=== PATIENT | female | born 2000 | race African-American/Black ===

== ENCOUNTER 2023-07-21 07:56 | Emergency (ER) | payer SELFPAY ==
[2023-07-21 09:15] LABS: BARBITURATE SCREEN,URINE NEGATIVE (CUTOFF=200); BENZODIAZEPINES SCREEN,URINE NEGATIVE (CUTOFF=150); BUPRENORPHINE SCREEN,URINE NEGATIVE (CUTOFF=10); METHADONE SCREEN, URINE NEGATIVE (CUTOFF=200); METHAMPHETAMINES SCREEN, URINE NEGATIVE (CUTOFF=500); OXYCODONE SCREEN,URINE NEGATIVE (CUT0FF=100); THC SCREEN,URINE 20 NG/ML NEGATIVE (CUTOFF=50)
[2023-07-21 09:19] LABS: AMPHETAMINES SCREEN, URINE NEGATIVE (CUTOFF=500)
[2023-07-21] MEDS ORDERED: Ketorolac 60 MG/2 ML SDV IM ONE (09:27)
== END 2023-07-21 11:11 | disposition home or self-care (01) ==
LOC: JD.ED 07:56
DX: S70.12XA Contusion of left thigh, initial encounter (principal); W00.0XXA Fall on same level due to ice and snow, initial encounter
CPT/HCPCS: 73502; 73552; 73560; 80306; 81025; 96372; 99283; J1885